=== PATIENT | female | born 1980 | race Two or more races ===

== ENCOUNTER 2017-09-09 11:49 | Inpatient (IN) | payer OTHER ==
[2017-09-09 12:46] VITALS: BMI 23.8
--- NOTE | 2017-09-09 15:16 | HP ---
COWS - Scale Resting Pulse: 1= OH 81-100 Sweatin= Chills/Flushing Restless Observation: 1= Difficult to Sit Still Pupil Size: 0= Normal to Room Light Bone or Joint Aches: 2= Severe Diffuse Aches Runny Nose/ Eye Tearin= Runny Nose/Eyes GI Upset > 30mins: 2= Nausea/Diarrhea Tremor Observation: 2= Slight Tremor Visible Yawning Observation: 1= 1-2x During Session Anxiety or Irritability: 2=Irritable/Anxious Goose Flesh Skin: 3=Piloerection COWS Score: 17 Admission ROS S - HPI Chief Complaint: "I'm tired of this already, I want to stop and do the right thing." Patient is here for Detox from Heroin. Allergies/Adverse Reactions: Allergies Allergy/AdvReac Type Severity Reaction Status Date / Time No Known Allergies Allergy Verified 09/09/17 13:41 History of Present Illness: Patient is a 37 YO female here to Detox from Heroin. Patient has had several previous Detox admissions at [facility] (last: 05/2017, Did not complete). Exam Limitations: No Limitations - Ebola screening Have you traveled outside of the country in the last 21 days: No Have you had contact with anyone from an Ebola affected area: No Have you been sick,other than usual withdrawal symptoms: No Do you have a fever: No - Review of Systems Constitutional: Chills, Diaphoresis, Fever, Loss of Appetite, Malaise, Night Sweats, Changes in sleep, Unintentional Wgt. Loss (Lost approx. 20 lbs. over last 3 months.) EENT: reports: Nose Congestion, Sinus Pressure Respiratory: reports: No Symptoms reported Cardiac: reports: Palpitations GI: reports: Constipated, Diarrhea, Nausea, Poor Appetite, Abdominal cramping : reports: No Symptoms Reported Musculoskeletal: reports: Back Pain, Joint Pain, Muscle Pain, Joint Stiffness Integumentary: reports: Other (Two Wounds on Left Upper Leg (X approx. 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 ) Hx Cardiac Disorders: No Hx Congestive Heart Failure: No Hx Hypertension: No Hx Hypercholesterolemia: No Hx Pacemaker: No HX Cerebrovascular Accident: No Hx Seizures: No Hx Dementia: No Hx Diabetes: No Hx Gastrointestinal Disorders: No Hx Liver Disease: Yes (Hep C, Diagnosed 2000; No Treatment yet.) Hx Genitourinary Disorders: No Hx Sexually Transmitted Disorders: Yes (Syphilis, Completed Full Course of Treatment approx. 3 months ago.) Hx Renal Disease (ESRD): Yes (Malignant mass on Right Kidney (Dx'd 08/2017); No treatment yet.) Hx Thyroid Disease: No Hx Human Immunodeficiency Virus (HIV): Yes (since 1997 non compliance no meds for last 2 years) Hx Hepatitis C: Yes (Diagnosed 2000; No Treatment yet.) Hx Depression: No Hx Suicide Attempt: No (PATIENT DENIES CURRENT SI / HI.) Hx Bipolar Disorder: No Hx Schizophrenia: No Other Medical History: DENIES. - Patient Surgical History Past Surgical History: Yes Hx Neurologic Surgery: No Hx Cataract Extraction: No Hx Cardiac Surgery: No Hx Lung Surgery: No Hx Breast Surgery: No Hx Breast Biopsy: No Hx Abdominal Surgery: No Hx Appendectomy: No Hx Cholecystectomy: No Hx Genitourinary Surgery: Yes (kidney stones in 2007) Hx Section: No Hx Orthopedic Surgery: No Hx Hysterectomy: No Other Surgical History: incision and drainage of abscess left axilla and left leg (both in 2004). Anesthesia Reaction: No - PPD History Previous Implant?: Yes Documented Results: Positive w/o proof (Completed Full course of treatment with [facility] (2000).) Implanted On Prior R Admission?: No PPD to be Administered?: No - Reproductive History Patient is a Female of Child Bearing Age (11 -55 yrs old): Yes Last Menstrual Period: 02/04/15 LMP comment: Pt uncertain why no menstruation since 01/24,has not sought medical consult Patient : No - Smoking Cessation Smoking history: Current every day smoker Have you smoked in the past 12 months: Yes Aproximately how many cigarettes per day: 5 Cigars Per Day: 0 Hx Chewing Tobacco Use: No Initiated information on smoking cessation: Yes 'Breaking Loose' booklet given: 09/09/17 (GIVEN ON UNIT.) - Substance & Tx. History Hx Alcohol Use: No Hx Substance Use: Yes Substance Use Type: Cocaine, Heroin Hx Substance Use Treatment: Yes (Previous Detox/Rehab admissions at [facility]; Last Detox:05/27, did not complete) - Substances Abused Heroin Route: Injection Frequency: Daily Amount used: 20-30 bags Age of first use: 18 Date of Last Use: 09/09/17 Crack Route: Smoking Frequency: Daily Amount used: 1/2 gram Age of first use: 16 Date of Last Use: 09/08/17 Family Disease History - Family Disease History Family Disease History: Other: Father (Used Alcohol, Crack Cocaine, Not currently.), Mother (Used Alcohol, Not currently.) Admission Physical Exam [facility] - Vital Signs Vital Signs: Vital Signs - 24 hr 09/09/17 12:43 Temperature 97.4 F L Pulse Rate 88 Respiratory 20 Rate Blood Pressure 92/60 - Physical General Appearance: Yes: Nourished, Appropriately Dressed, Mild Distress, Tremorous, Anxious HEENTM: Yes: Hearing grossly Normal, Normocephalic, Normal Voice, MILLY, Pharynx Normal Respiratory: Yes: Chest Non-Tender, Lungs Clear, No Respiratory Distress, No Accessory Muscle Use Neck: Yes: No masses,lesions,Nodules, Supple, Trachea in good position Breast: Yes: Breast Exam Deferred Cardiology: Yes: Regular Rhythm, Regular Rate, S1, S2 Abdominal: Yes: Normal Bowel Sounds, Flat, Soft Genitourinary: Yes: Within Normal Limits Back: Yes: Decreased Range of Motion, Vertebral Tenderness Musculoskeletal: Yes: Gait Steady, Back pain, Muscle Pain Extremities: Yes: Tremors Neurological: Yes: Fully Oriented, Alert, Normal Mood/Affect, Normal Response Integumentary: Yes: Normal Color, Dry, Warm, Erythema (And swelling noted at two locations on Left Upper Leg. Patient reports theses locations to be sites of previous IV drug injection. No bleeding noted at affected sites.), Track Newman (Noted in two locatiuons on Left Upper Leg. Swelling, erythema noted at both sites.) Lymphatic: Yes: Within Normal Limits - Diagnostic (1) Positive PPD, treated Current Visit: Yes Status: Resolved (2) Right kidney mass Current Visit: Yes Status: Acute Comment: Identified (08/2017). (3) History of iron deficiency anemia Current Visit: Yes Status: Suspected (4) HIV (human immunodeficiency virus infection) Current Visit: Yes Status: Chronic (5) Hepatitis C Current Visit: Yes Status: Chronic Qualifiers: Viral hepatitis chronicity: chronic Hepatic coma status: without hepatic coma Qualified Code(s): B18.2 - Chronic viral hepatitis C (6) Nicotine dependence Current Visit: Yes Status: Chronic Qualifiers: Nicotine product type: cigarettes Substance use status: uncomplicated Qualified Code(s): F17.210 - Nicotine dependence, cigarettes, uncomplicated (7) Opioid dependence with withdrawal Current Visit: Yes Status: Acute (8) Abscess of left lower extremity Current Visit: Yes Status: Acute (9) Cocaine dependence, uncomplicated Current Visit: Yes Status: Acute Cleared for Admission [facility] - Detox or Rehab [facility] Level of Care: Medically Managed Detox Regimen/Protocol: Methadone [facility] Breath Alcohol Content Breath Alcohol Content: 0 Urine Pregancy Test - Result Urine Test Results: Negative- NO Line Present Urine Drug Screen - Results Drug Screen Negative: No Urine Drug Screen Results: BRY-Cocaine, OPI-Opiates, MTD-Methadone, TCA- Tricyclic Antidepress, OXY-Oxycodone
[2017-09-09] MEDS ORDERED: LOPERAMIDE HCL 2 MG CAPSULE PO PRN (15:56)
[2017-09-09] MEDS ORDERED: P-EPHED 60MG/TRIPROLIDI 2.5MG TABLET PO PRN (15:56)
[2017-09-09] MEDS ORDERED: METHADONE HCL 10 MG TABLET (FOR DETOX USE ONLY) PO ONE ×2 (15:56→23:00)
[2017-09-09] MEDS ORDERED: MAG HYDROX/AL HYDROX/SIMETH 30 ML UNIT-DOSE CUP PO PRN (15:56)
[2017-09-09] MEDS ORDERED: MAGNESIUM HYDROX 2400MG/30ML ORAL SUSPENSION 30 ML CUP PO PRN (15:56)
[2017-09-09] MEDS ORDERED: MAGNESIUM CITRATE 300 ML BOTTLE PO PRN (15:56)
[2017-09-09] MEDS ORDERED: hydrOXYzine PAMOATE 50 MG CAPSULE (FP) PO PRN (15:56)
[2017-09-09] MEDS ORDERED: guaiFENesin/D-METHORPHAN HB 10 ML UNIT-DOSE CUPS PO PRN (15:56)
[2017-09-09] MEDS ORDERED: NICOTINE POLACRILEX 2 MG GUM BC PRN (15:56)
[2017-09-09] MEDS ORDERED: MENTHOL/PHENOL 1 EACH UD MM PRN (15:56)
[2017-09-09] MEDS ORDERED: CYCLOBENZAPRINE HCL 10 MG TABLET (FP) PO PRN (16:02)
[2017-09-09] MEDS ORDERED: SILVER SULFADIAZINE 1% TOP CREAM 50 GM JAR TP SCH (16:15)
[2017-09-09] MEDS: ACETAMINOPHEN 325 MG TABLET (FP) PO PRN ×2 (16:49→21:54)
[2017-09-09] MEDS ORDERED: SODIUM CHLORIDE 1,000 ML IV SCH ×2 (18:00→23:01)
[2017-09-09] MEDS: NICOTINE 14 MG/24 HOURS TOPICAL PATCH TD SCH (18:06)
[2017-09-09] MEDS: CEPHALEXIN MONOHYDRATE 500 MG CAPSULE (UD) PO SCH ×2 (18:06→22:59)
[2017-09-09] MEDS: SILVER SULFADIAZINE 1% TOP CREAM 50 GM JAR TP SCH ×2 (18:41→23:00)
[2017-09-09] MEDS: diazePAM 5 MG TABLET PO PRN (21:54)
[2017-09-09] MEDS ORDERED: THIAMINE HCL 100 MG TABLET (FP) PO SCH (22:00)
[2017-09-09] MEDS ORDERED: BACLOFEN 10 MG TABLET (FP) PO PRN (22:34)
[2017-09-09 22:56] LABS: URINE APPEARANCE CLOUDY; URINE BILIRUBIN NEGATIVE (NEGATIVE); URINE BLOOD NEGATIVE (NEGATIVE); URINE COLOR AMBER; URINE GLUCOSE (UA) NEGATIVE (NEGATIVE); URINE KETONE NEGATIVE (NEGATIVE); URINE NITRITE NEGATIVE (NEGATIVE)
[2017-09-09 23:03] LABS: URINE PROTEIN 2+ (NEGATIVE)
[2017-09-09 23:39] LABS: GRANULAR CASTS 8 /lpf; URINE MUCUS FEW; URINE RBC 14 /hpf (0-3); URINE WBC 30 /hpf (3-5)
[2017-09-10] MEDS: ACETAMINOPHEN 325 MG TABLET (FP) PO PRN ×2 (01:08→05:48)
[2017-09-10 09:58] LABS: MCH 31.6 pg (25.7-33.7); MCHC 36.7 g/dl (32.0-36.0); MEAN PLT VOLUME 9.7 fl (7.5-11.1); PLATELET COUNT 147 K/MM3 (134-434); RDW 16.2 % (11.6-15.6); WHITE BLOOD COUNT 8.5 K/mm3 (4.0-10.0)
[2017-09-10] MEDS ORDERED: METHADONE HCL 10 MG TABLET (FOR DETOX USE ONLY) PO ONE (10:00)
[2017-09-10] MEDS ORDERED: PRENATAL VITAMINS W/ FOLIC ACID TABLET (FP) PO SCH (10:00)
[2017-09-10 10:03] LABS: ALBUMIN 2.4 g/dl (3.4-5.0); ANION GAP 9 (8-16); BILIRUBIN,TOTAL 0.5 mg/dL (0.2-1.0); CALCIUM 7.5 mg/dL (8.5-10.1); CO2 25 mmol/L (21-32); CREATININE 1.1 mg/dL (0.55-1.02); GLUCOSE,RANDOM 89 mg/dL (74-106); SGOT/AST 35 U/L (15-37); SGPT/ALT 44 U/L (12-78); TOT PROT 7.7 g/dl (6.4-8.2)
[2017-09-10 10:04] LABS: ALK PHOS 69 U/L (45-117)
[2017-09-10] MEDS: CEPHALEXIN MONOHYDRATE 500 MG CAPSULE (UD) PO SCH ×3 (10:25→20:45)
[2017-09-10] MEDS: SILVER SULFADIAZINE 1% TOP CREAM 50 GM JAR TP SCH (10:26)
[2017-09-10] MEDS: diazePAM 5 MG TABLET PO PRN (10:28)
[2017-09-10] MEDS: NICOTINE 14 MG/24 HOURS TOPICAL PATCH TD SCH (10:29)
[2017-09-10 11:45] LABS: URINE LEUK ESTERASE TRACE (NEGATIVE)
--- NOTE | 2017-09-10 13:08 | EKG ---
Test Reason : Blood Pressure : / mmHG Vent. Rate : 091 BPM Atrial Rate : 091 BPM P-R Int : 140 ms QRS Dur : 092 ms QT Int : 342 ms P-R-T Axes : 058 021 032 degrees QTc Int : 420 ms NORMAL SINUS RHYTHM POSSIBLE LEFT ATRIAL ENLARGEMENT INCOMPLETE RIGHT BUNDLE BRANCH BLOCK BORDERLINE ECG NO PREVIOUS ECGS AVAILABLE Confirmed by JAIRO JAMISON MD ([id number]) on 09/10/2017 1:08:23 PM Referred By: Confirmed By:JAIRO JAMISON MD
--- NOTE | 2017-09-10 13:27 | PN ---
[facility] Progress Note Note: pt continues feel and look sickly. Pt had a temp 103. tylenol was given early this morning and pt continue to spike. last temp 100.0 BP 115/78, pulse 91, RR 18 pt has two abscess with foul purulent drainage noted. pt agreed to go to ED for evaluation. report given to TEMITOPE Howell
--- NOTE | 2017-09-10 13:33 | PN ---
[facility] COWS - Scale Resting Pulse: 2= MD 101-120 Sweatin=Flushed/Facial Moisture Restless Observation: 1= Difficult to Sit Still Pupil Size: 0= Normal to Room Light Bone or Joint Aches: 2= Severe Diffuse Aches Runny Nose/ Eye Tearin= Nasal Congestion GI Upset > 30mins: 2= Nausea/Diarrhea Tremor Observation of Outstretched Hands: 2= Slight Tremor Visible Yawning Observation: 2= >3x During Session Anxiety or Irritability: 2=Irritable/Anxious Goose Flesh Skin: 3=Piloerection COWS Score: 19 [facility] Progress Note (SOAP) Subjective: I feel sick sweats chills body aches Objective: 09/10/17 13:32 Vital Signs Temperature 99.0 F 09/10/17 09:35 Pulse Rate 86 09/10/17 09:35 Respiratory Rate 18 09/10/17 09:35 Blood Pressure 94/59 09/10/17 09:35 O2 Sat by Pulse Oximetry (%) Laboratory Tests 09/09/17 09/10/17 09/10/17 15:50 06:00 06:00 WBC 8.5 D RBC 2.85 L D Hgb 9.0 L D Hct 24.5 L D MCV 86.0 MCH 31.6 MCHC 36.7 H RDW 16.2 H Plt Count 147 MPV 9.7 D Sodium 130 L Potassium 3.5 D Chloride 96 L Carbon Dioxide 25 Anion Gap 9 BUN 18 Creatinine 1.1 H D Creat Clearance w eGFR 55.30 Random Glucose 89 Calcium 7.5 L Total Bilirubin 0.5 AST 35 D ALT 44 D Alkaline Phosphatase 69 Total Protein 7.7 Albumin 2.4 L Urine Color Kathryn Urine Appearance Cloudy Urine pH 5.0 Ur Specific Amo 1.024 Urine Protein 2+ H Urine Glucose (UA) Negative Urine Ketones Negative Urine Blood Negative Urine Nitrite Negative Urine Bilirubin Negative Urine Urobilinogen 2.0 H Ur Leukocyte Esterase Trace H Urine WBC (Auto) 30 Urine RBC (Auto) 14 Ur Epithelial Cells Moderate Granular Casts 8 Urine Mucus Few RPR Titer T.pallidum Ab (A) 09/10/17 06:00 WBC RBC Hgb Hct MCV MCH MCHC RDW Plt Count MPV Sodium Potassium Chloride Carbon Dioxide Anion Gap BUN Creatinine Creat Clearance w eGFR Random Glucose Calcium Total Bilirubin AST ALT Alkaline Phosphatase Total Protein Albumin Urine Color Urine Appearance Urine pH Ur Specific Amo Urine Protein Urine Glucose (UA) Urine Ketones Urine Blood Urine Nitrite Urine Bilirubin Urine Urobilinogen Ur Leukocyte Esterase Urine WBC (Auto) Urine RBC (Auto) Ur Epithelial Cells Granular Casts Urine Mucus RPR Titer Reactive 1:1 H T.pallidum Ab (A) Previously reactive pt will be sent to [facility] for evaluation see previous note pt is aaox3 ambulating sickly looking Assessment: 09/10/17 13:33 withdrawal sx Plan: increase fluids pt will be sent to ed for further evaluation and or tx.
[2017-09-10 14:59] VITALS: BP 115/78; PULSE 91; TEMP 100
[2017-09-11] MEDS ORDERED: METHADONE HCL 5 MG TABLET (FOR DETOX USE ONLY) PO ONE (10:00)
[2017-09-12] MEDS ORDERED: METHADONE HCL 5 MG TABLET (FOR DETOX USE ONLY) PO ONE (10:00)
[2017-09-13] MEDS ORDERED: METHADONE HCL 10 MG TABLET (FOR DETOX USE ONLY) PO ONE (10:00)
[2017-09-14] MEDS ORDERED: METHADONE HCL 5 MG TABLET (FOR DETOX USE ONLY) PO ONE (06:00)
== END 2017-09-10 23:22 | disposition short-term general hospital (02) | DRG 773 ==
LOC: YASAS 11:49 → Y6N 15:13
PROVIDERS: ADMIT Internal Medicine; ATTEND Internal Medicine
PROC: HZ2ZZZZ Detoxification Services for Substance Abuse Treatment (ICD-10-PCS; principal; 2017-09-09)
DX: F11.23 Opioid dependence with withdrawal (principal); F14.20 Cocaine dependence, uncomplicated; F17.210 Nicotine dependence, cigarettes, uncomplicated; D50.9 Iron deficiency anemia, unspecified; R76.11 Nonspecific reaction to tuberculin skin test without active tuberculosis; B18.2 Chronic viral hepatitis C; Z21 Asymptomatic human immunodeficiency virus [HIV] infection status; N28.89 Other specified disorders of kidney and ureter; L02.416 Cutaneous abscess of left lower limb; R50.9 Fever, unspecified; Z87.42 Personal history of other diseases of the female genital tract; Z91.14 Patient's other noncompliance with medication regimen
CPT/HCPCS: 36415; 71010-TC; 80053; 81003; 81015; 85027; 86593; 86780; 93005; 93010